=== PATIENT | male | born 1945 | race Caucasian/White ===

== ENCOUNTER 2018-06-02 18:13 | Emergency (ER) | payer MEDICARE ==
[2018-06-02 18:33] VITALS: BP 154/58; PULSE 78; RESP 20; TEMP 98.3
[2018-06-02] MEDS ORDERED: BACITRACIN 500 UNIT/GM OINT 28.4 GM TUBE TOPICAL ONE (20:12)
--- NOTE | 2018-06-02 20:17 | ED ---
General Adult HPI - General Chief complaint: Skin/Abscess/Foreign Body Stated complaint: Infected tick bite Time Seen by Provider: 06/02/18 19:30 Source: patient Mode of arrival: ambulatory Limitations: no limitations - History of Present Illness Initial comments: This is a 73-year-old male with past medical history of hypertension who presents today for possible tick bite. Patient states that he is often the tee. Wednesday he noticed that his left medial calf was itchy, and he thought he may have noticed a very small black dot . He is unsure because he is legally blind. He states that he scratched it a lot for the past 2 days causing it to bleed and become red. The redness was slightly better today however they thought it was in sort of a agdaagux patternaround the bite alma and looked up the signs of Lyme disease. They stated of the images of lyme disease did not look the same but they were still worried and presented to emergency department. Upon presentation patient's vital signs stable. Patient denies any recent fever, chills, arthralgias, headache, shortness of breath, chest pain, back pain, abdominal pain, nausea or vomiting, numbness or tingling, dysuria or hematuria, constipation or diarrhea, headaches or visual changes, or any other complaints. - Related Data Home Medications Medication Instructions Recorded Confirmed Atenolol [Tenormin] 25 mg PO DAILY 06/02/18 06/02/18 amLODIPine [Norvasc] 10 mg PO DAILY 06/02/18 06/02/18 Previous Rx's Medication Instructions Recorded Doxycycline [Vibramycin] 200 mg PO ONCE 1 Days #4 capsule 06/02/18 Allergies Allergy/AdvReac Type Severity Reaction Status Date / Time No Known Allergies Allergy Verified 06/02/18 19:39 Review of Systems ROS Statement: Those systems with pertinent positive or pertinent negative responses have been documented in the HPI. ROS Other: All systems not noted in ROS Statement are negative. Constitutional: Denies: fever, chills Eyes: Denies: vision change Respiratory: Denies: cough, dyspnea Cardiovascular: Denies: chest pain, palpitations Endocrine: Denies: fatigue Gastrointestinal: Denies: abdominal pain, nausea, vomiting Genitourinary: Denies: urgency, dysuria, frequency Musculoskeletal: Denies: back pain, arthralgia Skin: Reports: as per HPI Neurological: Denies: headache, confusion Past Medical History Past Medical History: Hypertension Additional Past Medical History / Comment(s): glaucoma History of Any Multi-Drug Resistant Organisms: None Reported Additional Past Surgical History / Comment(s): eye surgery,cataract Past Psychological History: No Psychological Hx Reported Smoking Status: Never smoker Past Alcohol Use History: None Reported Past Drug Use History: None Reported General Exam - General Exam Comments Initial Comments: General: The patient is awake and alert, in no distress, and does not appear acutely ill. Eye: Pupils are equal, round and reactive to light, extra-ocular movements are intact. No nystagmus. There is normal conjunctiva bilaterally. No signs of icterus. Ears, nose, mouth and throat: There are moist mucous membranes and no oral lesions. Cardiovascular: There is a regular rate and rhythm. No murmur, rub or gallop is appreciated. Respiratory: Lungs are clear to auscultation, respirations are non-labored, breath sounds are equal. No wheezes, stridor, rales, or rhonchi. Musculoskeletal: Normal ROM, no tenderness. Strength 5/5. Sensation intact. Pulses equal bilaterally 2+. Neurological: A&O x 3. CN II-XII intact, There are no obvious motor or sensory deficits. Coordination appears grossly intact. Speech is normal. Skin: Skin is warm and dry and no rashes or lesions are noted. There is a small break in the skin surrounded by a ring of bright red dried blood most likely excoriated from itching. There is no evidence of surrounding cellulitis or erythema. Psychiatric: Cooperative, appropriate mood & affect, normal judgment. Limitations: no limitations Course Vital Signs 06/02/18 18:30 Temperature 98.3 F Pulse Rate 78 Respiratory 20 Rate Blood Pressure 154/58 O2 Sat by Pulse 96 Oximetry Medical Decision Making - Medical Decision Making I examined the bite, there was an opening in the skin with an surrounding area of excoriation most likely due to itching given the patient's history. There was no evidence of surrounding cellulitis. I cleaned the area with tap water and applied bacitracin ointment to the area covering with sterile gauze and tape. I educated the patient on lyme disease, and what signs to look for. We discussed treatment options and patient felt more comfortable with lyme disease prophylaxis and close follow-up with PCP. Pt was given RX for 200mg doxycycline PO once. And discharged in stable condition. Disposition Clinical Impression: Tick bite of calf, Insect bite Disposition: HOME SELF-CARE Condition: Good Instructions: Insect Bite or Sting (ED), Tick Bite (ED) Additional Instructions: Please use medication as discussed. Please follow-up with family doctor in the next 2 days of symptoms have not improved. Please return to emergency room if the symptoms increase or worsen or for any other concerns. Prescriptions: Doxycycline [Vibramycin] 200 mg PO ONCE 1 Days #4 capsule Is patient prescribed a controlled substance at d/c from ED?: No Referrals: Rashard Cardenas MD [Primary Care Provider] - 1-2 days Time of Disposition: 20:17
[2018-06-02] MEDS ORDERED: BACITRACIN OINT 1 EACH PACKET TOPICAL STA (20:24)
== END 2018-06-02 20:20 | disposition home or self-care (01) ==
LOC: EC 18:13
DX: S80.862A Insect bite (nonvenomous), left lower leg, initial encounter (principal); H54.8 Legal blindness, as defined in USA; I10 Essential (primary) hypertension; Z79.899 Other long term (current) drug therapy; Z53.8 Procedure and treatment not carried out for other reasons; W57.XXXA Bitten or stung by nonvenomous insect and other nonvenomous arthropods, initial encounter
CPT/HCPCS: 99282